=== PATIENT | female | born 2000 ===

== ENCOUNTER 2020-07-07 17:52 | Outpatient (CLI) | payer SELFPAY ==
[~2020-07-07] VITALS: Ht 147.3 cm; Wt 62.0 kg
[2020-07-07 18:15] LABS: MICROSCOPIC INDICATED
[2020-07-07 18:26] LABS: AMPHETAMINE SCREEN, URINE Negative (Negative); BARBITURATE SCREEN, URINE Negative (Negative); BENZODIAZEPINE SCREEN, URINE Negative (Negative); CANNABINOID SCREEN, URINE Positive (Negative); COCAINE SCREEN, URINE Negative (Negative); OPIATE SCREEN, URINE Negative (Negative)
[2020-07-07 18:27] LABS: METHADONE SCREEN, URINE Negative (Negative)
== END 2020-07-07 18:49 | disposition home or self-care (01) ==
LOC: LDOP 17:52
PROVIDERS: ATTEND Obstetrics & Gynecology
DX: O26.893 Other specified pregnancy related conditions, third trimester (principal); R10.9 Unspecified abdominal pain; Z3A.36 36 weeks gestation of pregnancy
CPT/HCPCS: 59025; 80307; 81001; 87086